=== PATIENT | male | born 1990 ===

== ENCOUNTER 2016-07-03 11:10 | Emergency (ER) | payer SELFPAY ==
[2016-07-03 11:19] VITALS: BP 126/81; PULSE 81; RESP 20; TEMP 98.1; O2SAT 97
[2016-07-03] MEDS ORDERED: Naproxen 550 mg Tab PO STA (12:17)
[2016-07-03] MEDS ORDERED: Naproxen 550 mg Tab PO ONE (12:55)
--- NOTE | 2016-07-03 13:10 | RAD ---
Right femur History: Pain, injury. History of old femoral fracture. Findings: Multiple views of the left femur. No evidence of acute fracture. There are intramedullary rods. Unremarkable soft tissues. Impression: No evidence of acute fracture.
--- NOTE | 2016-07-03 13:13 | C.PDOC ---
History Of Present Illness 26 year old patient presents to the emergency department complaining of left thigh and left lower femur pain for the past several days. Patient states he has an old injury to the same leg. When he was younger, he had a fracture in which they put plates and screws. Since then, there has been intermittent pain and thinks the screws might be out of place. Patient denies any new trauma, fever, numbness or weakness to his lower extremities. Time Seen by Provider: 07/03/16 11:48 Chief Complaint (Nursing): Lower Extremity Problem/Injury History Per: Patient History/Exam Limitations: no limitations Onset/Duration Of Symptoms: Days (several) Current Symptoms Are (Timing): Still Present Severity: Moderate Pain Scale Rating Of: 4 Recent travel outside of the [place]: No Past Medical History Reviewed: Historical Data, Nursing Documentation, Vital Signs Vital Signs: Last Vital Signs Temp 98.1 F 07/03/16 11:15 Pulse 81 07/03/16 11:15 Resp 20 07/03/16 13:59 BP 126/81 07/03/16 11:15 Pulse Ox 97 07/03/16 14:00 Family History: States: Unknown Family Hx - Social History Hx Alcohol Use: No Hx Substance Use: No - Immunization History Hx Tetanus Toxoid Vaccination: No Hx Influenza Vaccination: No Hx Pneumococcal Vaccination: No Review Of Systems Except As Marked, All Systems Reviewed And Found Negative. Constitutional: Negative for: Fever Musculoskeletal: Positive for: Other (left thigh and lower femur pain) Neurological: Negative for: Weakness, Numbness Physical Exam - Physical Exam Appears: Non-toxic, No Acute Distress Skin: Warm, Dry Head: Atraumatic, Normacephalic Eye(s): bilateral: Normal Inspection Oral Mucosa: Moist Neck: Normal ROM, Supple Chest: Symmetrical Cardiovascular: Rhythm Regular, No Friction Rub, No Murmur Respiratory: Normal Breath Sounds, No Rales, No Rhonchi, No Wheezing Extremity: Capillary Refill (within normal limits), Other (Well healed scar to the lateral and medical aspect of the distal left thigh; normal pulses; (+) swelling and tenderness to the medial and lateral aspected of the left thigh) Neurological/Psych: Oriented x3, Normal Speech, Normal Cognition, Normal Motor, Normal Sensation Gait: Steady ED Course And Treatment O2 Sat by Pulse Oximetry: 97 (RA) Pulse Ox Interpretation: Normal - Other Rad left femur X-Ray: Interpreted by Me, Viewed By Me Interpretation: no fractures or dislocations. Hardware protruding out of the distal aspect of the left femur Progress Note: Naproxen given. Left femur x-ray taken. Medical Decision Making Medical Decision Making: Patient on re-eval, is ambulatory in the ED with steady and was instructed to follow up with the Orthopedist. Disposition - Disposition Referrals: Nohelia Fitch MD [Staff Provider] - Shay Reyes MD [Staff Provider] - Benjy French DO [Doctor Osteopathy] - [facility] [Outside] Disposition: HOME/ ROUTINE Disposition Time: 13:11 Condition: GOOD Additional Instructions: Follow up with the Orthopedist within 1-2 days, Return if worsened, Prescriptions: Cane 1 each MC DAILY #1 each Naproxen [Naprosyn] 500 mg PO BID #20 tab Acetaminophen [Tylenol] 325 mg PO Q6 PRN #30 tab PRN Reason: Pain, Moderate (4-7) Instructions: Leg Pain (ED) - Clinical Impression Clinical Impression: Leg pain - PA / FIREPERSON / Resident Statement / has reviewed & agrees with the documentation as recorded. - Scribe Statement The provider has reviewed the documentation as recorded by the Scribe Li Cevallos All medical record entries made by the Scribe were at my direction and personally dictated by me. I have reviewed the chart and agree that the record accurately reflects my personal performance of the history, physical exam, medical decision making, and the department course for this patient. I have also personally directed, reviewed, and agree with the discharge instructions and disposition.
== END 2016-07-03 13:59 | disposition home or self-care (01) ==
LOC: C.ER 11:10
DX: M79.652 Pain in left thigh (principal)

== ENCOUNTER 2018-04-06 11:23 | Emergency (ER) | payer OTHER ==
[2018-04-06 11:36] VITALS: BP 115/76; PULSE 88; RESP 16; TEMP 98; O2SAT 99
[2018-04-06] MEDS ORDERED: Clindamycin 600mg/50ml NS 600 MG/50 ML BAG IVPB ONE (11:52)
--- NOTE | 2018-04-06 12:07 | C.PDOC ---
History Of Present Illness 27 y/o male, with history of ORIF on left femur, comes in to ED complaining of right facial pain and swelling that started several weeks ago and is now swollen. Patient states hes been having swelling for a week and a half now. Patient recalls his daughter was playing while carrying her when she hit his face with her head, but this was several weeks before the swelling began. Also states he has some chipped tooth in the upper molar but he is not sure if that could be the reason for the swelling. Otherwise he denies any toothache, lesions inside mouth, fever, chills, or other physical complaints. Time Seen by Provider: 04/06/18 11:30 Chief Complaint (Nursing): Abnormal Skin Integrity History Per: Patient History/Exam Limitations: no limitations Onset/Duration Of Symptoms: Days Current Symptoms Are (Timing): Still Present Past Medical History Reviewed: Historical Data, Nursing Documentation, Vital Signs Vital Signs: Last Vital Signs Temp 98 F 04/06/18 11:34 Pulse 88 04/06/18 11:34 Resp 16 04/06/18 11:34 BP 115/76 04/06/18 11:34 Pulse Ox 99 04/06/18 11:34 Family History: States: No Known Family Hx - Social History Hx Alcohol Use: No Hx Substance Use: No - Immunization History Hx Tetanus Toxoid Vaccination: No Hx Influenza Vaccination: No Hx Pneumococcal Vaccination: No Review Of Systems Except As Marked, All Systems Reviewed And Found Negative. Constitutional: Negative for: Fever, Chills ENT: Negative for: Mouth Pain Musculoskeletal: Positive for: Other (Right facial pain and swelling) Skin: Negative for: Lesions Physical Exam - Physical Exam Appears: Non-toxic, No Acute Distress Skin: Warm, Dry, Other (Redness outside of the face with central lesion) Head: Swelling (facial swelling on right mandible, indurated; mild tenderness on palpation) Eye(s): bilateral: Normal Inspection Oral Mucosa: Moist Teeth: Caries (to R premolar and right upper molar) Neck: Supple Chest: Symmetrical Cardiovascular: Rhythm Regular, No Murmur Respiratory: Normal Breath Sounds, No Rales, No Rhonchi, No Wheezing Extremity: Bilateral: Atraumatic, Normal Color And Temperature, Normal ROM Neurological/Psych: Oriented x3, Normal Speech ED Course And Treatment O2 Sat by Pulse Oximetry: 99 (RA) Pulse Ox Interpretation: Normal Medical Decision Making Medical Decision Making: Impression: Facial cellulitis vs. dental abscess Plan: --Cleocin Patient understands he needs to follow up with clinic and was given referral for plastic surgeon Dr. Sarmiento for further evaluation. Patient is advised to return to ER if symptoms persist. Patient will be discharged home with antibiotics and pain medications. Disposition - Disposition Referrals: [facility] [Outside] Jevon Sarmiento MD [Staff Provider] - Disposition: HOME/ ROUTINE Disposition Time: 12:42 Condition: GOOD Additional Instructions: Please call [facility] for dental appointment as soon as possible. Take clindamycin and motrin as directed. Please follow with Dr Sarmiento if there is a need of for plastic surgeon. Prescriptions: Clindamycin [Cleocin] 300 mg PO Q6 7 Days #28 cap Ibuprofen [Motrin] 600 mg PO Q6 #20 tab Instructions: Tooth Abscess (DC) Forms: [employer] ([place]) - Clinical Impression Clinical Impression: Dental abscess - Scribe Statement The provider has reviewed the documentation as recorded by the Fabio [place] Provider Attestation: All medical record entries made by the Fabio were at my direction and personally dictated by me. I have reviewed the chart and agree that the record accurately reflects my personal performance of the history, physical exam, medical decision making, and the department course for this patient. I have also personally directed, reviewed, and agree with the discharge instructions and disposition.
== END 2018-04-06 12:42 | disposition home or self-care (01) ==
LOC: C.ER 11:23
DX: K04.7 Periapical abscess without sinus (principal)